=== PATIENT | male | born 1945 | race Caucasian/White ===

== ENCOUNTER → 2019-04-29 | Outpatient (CLI) | payer MEDICARE ==
[~2019-04-29] MED LIST: ASPI81EC PO; ATOR20 PO; CLOP75 PO; EZET10; FISH1000 PO; GLIM4 PO; HYDACE5 PO; IBUP800 PO; LISI20 PO; METF500 PO; METO50ER PO; NAPR550 PO; NITR.4SL SL; OMEP20ER PO; PANT20 PO; PRAV20 PO
== END | disposition home or self-care (01) ==
LOC: LAB 12:02 → LAB SHORT 12:02
DX: Z12.11 Encounter for screening for malignant neoplasm of colon (principal)

== ENCOUNTER 2020-07-31 00:07 | Day surgery (SDC) | payer MEDICARE ==
[2020-07-31] MEDS ORDERED: TRULICITY3 MG/0.5 M SC (10:14)
[2020-07-31] MEDS ORDERED: CENTRUM SILVER1 EAC2 PO (10:15)
[2020-07-31] MEDS ORDERED: JARDIANCE25 MG PO (10:15)
[2020-07-31] MEDS ORDERED: PIOG30 PO (10:15)
--- NOTE | 2020-07-31 10:18 | NUR ---
PT STATES HE VOIDED PRIOR TO COMING BACK INTO [facility]OM 4. THIS WAS AN UNMEASURED VOID. UPON ARRIVAL TO ROOM 4 BLADDER SCAN WAS 123ML. ASKED PT TO TRY TO VOID AGAIN FOR A MEASUREMENT. PT VOIDED 25ML CLEAR YELLOW URINE. BLADDER SCAN AFTER THIS VOID READ 97ML.
== END 2020-07-31 10:03 | disposition home or self-care (01) ==
LOC: ATC 00:07
DX: R35.1 Nocturia (principal); I10 Essential (primary) hypertension; E11.9 Type 2 diabetes mellitus without complications; F17.290 Nicotine dependence, other tobacco product, uncomplicated; E78.5 Hyperlipidemia, unspecified; I25.2 Old myocardial infarction; Z79.84 Long term (current) use of oral hypoglycemic drugs
CPT/HCPCS: 51798

== ENCOUNTER → 2024-01-14 | Outpatient (CLI) | payer MEDICARE ==
[~2024-01-14] MED LIST changes: +CENTRUM SILVER1 EAC2 PO; +JARDIANCE25 MG PO; +PIOG30 PO; +TRULICITY3 MG/0.5 M SC
== END ==
LOC: LAB SHORT 08:26 → LAB 08:26
DX: L91.8 Other hypertrophic disorders of the skin (principal)
CPT/HCPCS: 88304

== ENCOUNTER 2024-02-15 13:15 | Emergency (ER) | payer MEDICARE ==
[~2024-02-15] VITALS: Ht 185.4 cm; Wt 90.7 kg
[2024-02-15] MEDS ORDERED: NS 1,000 ML IV SCH (13:45)
[2024-02-15] MEDS ORDERED: Ondansetron HCl 2 MG / ML 2ML Vial IV ONE (13:45)
[2024-02-15 14:09] LABS: BASOPHILS ABSOLUTE AUTO 0.02 K/mm3 (0.00-0.23); BASOPHILS PERCENT AUTO 0 % (0-2); EOSINOPHILS PERCENT AUTO 1 % (0-6); Hematocrit 39.1 % (37.0-53.0); Hemoglobin 13.4 g/dL (13.5-17.5); IMMATURE GRAN ABSOLUTE AUTO 0.02 K/mm3 (0.00-0.10); IMMATURE GRAN PERCENT AUTO 0 % (0-1); LYMPHOCYTES ABSOLUTE AUTO 1.38 K/mm3 (0.84-5.20); LYMPHOCYTES PERCENT AUTO 17 % (21-46); MONOCYTES ABSOLUTE AUTO 0.54 K/mm3 (0.16-1.47); MONOCYTES PERCENT AUTO 7 % (4-13); Mean Corpuscular HGB 29.3 pg (26.0-34.0); Mean Corpuscular HGB Conc 34.3 g/dL (31.5-36.5); Mean Corpuscular Volume 85 fL (80-100); Mean Platelet Volume 9.2 fL (9.1-12.4); NEUTROPHILS PERCENT AUTO 75 % (41-73); Platelet Count 140 K/mm3 (150-400); RDW Coefficient Variation 13.9 % (11.7-14.2); RDW Standard Deviation 43.4 fL (35.1-46.3); Red Blood Cell Count 4.58 M/mm3 (4.30-5.90); White Blood Cell Count 8.06 K/mm3 (4.00-11.30)
[2024-02-15 14:30] LABS: Albumin, Blood 3.8 g/dL (3.4-5.0); Albumin/Globulin Ratio 1.2 (0.8-1.8); Bilirubin, Total 0.9 mg/dL (0.1-1.0); Bun/Creatinine Ratio 16.8 (12.0-20.0); Calcium, Blood 8.9 mg/dL (8.5-10.1); Creatinine, Blood 1.13 mg/dL (0.60-1.20); Globulin, Blood 3.1 g/dL (2.2-4.0); Potassium, Blood 3.9 mmol/L (3.5-5.5); Total Protein, Blood 6.9 g/dL (6.4-8.2)
[2024-02-15] MEDS ORDERED: CITALOPRAM HBR20 M9 PO (15:26)
[2024-02-15] MEDS ORDERED: LISINOPRIL-HCT1 EACH PO (15:26)
[2024-02-15 15:29] LABS: Base Excess Venous 4.2 mmol/L; Bicarbonate Venous 26.4 mmol/L (24.0-30.0); PCO2 Venous 50.4 mmHg (38-42); pH Blood Venous 7.37 (7.34-7.37)
[2024-02-15 15:56] LABS: Source, Urine Clean Catch
[2024-02-15 16:05] LABS: Appearance, Urine Clear (Clear); Bilirubin, Urine Neg (Neg); Blood, Urine Neg (Neg); Color, Urine Yellow (P-Yellow); Glucose Qualitative, Urine 4+ (Neg); Ketones, Urine 2+ (Neg); Leukocyte Esterase, Urine Neg (Neg); Nitrite, Urine Neg (Neg); Protein, Urine Neg (Neg); Specific Gravity, Urine 1.015 (1.003-1.022); Urobilinogen, Urine 1+ (Normal)
[2024-02-15 16:45] VITALS: BP 127/62
== END 2024-02-15 17:48 | disposition home or self-care (01) ==
LOC: ER 13:15
PROVIDERS: Emergency Medicine
DX: I95.9 Hypotension, unspecified (principal); E78.5 Hyperlipidemia, unspecified; E11.9 Type 2 diabetes mellitus without complications; I10 Essential (primary) hypertension; Z87.891 Personal history of nicotine dependence; Z79.85 Long-term (current) use of injectable non-insulin antidiabetic drugs; Z79.84 Long term (current) use of oral hypoglycemic drugs; Z79.899 Other long term (current) drug therapy
CPT/HCPCS: 71046; 80053; 81003; 82803; 83880; 84484; 85025; 93005; 93010; 99284-25

== ENCOUNTER → 2024-09-05 | Outpatient (CLI) | payer MEDICARE ==
[~2024-09-05] MED LIST changes: +CITALOPRAM HBR20 M9 PO; +LISINOPRIL-HCT1 EACH PO
[2024-09-13 08:47] LABS: Stool Occult Bld Immuno 1 Negative (NEGATIVE)
== END ==
LOC: LAB SHORT 08:00 → LAB 08:00
PROVIDERS: Physician Assistant
DX: D69.6 Thrombocytopenia, unspecified (principal)
CPT/HCPCS: G0328